=== PATIENT | female | born 1965 | race Caucasian/White ===

== ENCOUNTER 2018-11-20 06:40 | Day surgery (SDC) | payer BC ==
[~2018-11-20] VITALS: Ht 157.5 cm; Wt 54.8 kg
[2018-11-20 08:33] VITALS: Ht 157.5 cm; Wt 54.8 kg
[2018-11-20 08:49] VITALS: BP 119/62; PULSE 61; RESP 16
[2018-11-20] MEDS ORDERED: LACTATED RINGER'S 1,000 ML IV SCH (09:00)
[2018-11-20] MEDS ORDERED: LIDOCAINE 1%/EPI 30 ML INJ ONE (10:34)
[2018-11-20] MEDS ORDERED: EPHEDrine 25 MG/5 ML SYG ONE (10:46)
[2018-11-20] MEDS ORDERED: PROPOFOL 200 MG INJ ONE (10:46)
[2018-11-20] MEDS ORDERED: MIDAZOLAM 1 MG/ML 2 ML INJ ONE (10:46)
[2018-11-20] MEDS ORDERED: FENTAnyl 50 MCG/ML VIAL ONE (10:54)
[2018-11-20 11:08] VITALS: BP 91/56; PULSE 77; RESP 16
[2018-11-20 11:13] VITALS: BP 98/61; PULSE 76; RESP 11
[2018-11-20 11:18] VITALS: BP 101/63; PULSE 78; RESP 15
[2018-11-20 11:23] VITALS: BP 100/50; PULSE 76; RESP 15
[2018-11-20 11:28] VITALS: BP 97/54; PULSE 76; RESP 13
[2018-11-20] MEDS ORDERED: MEPERIDINE 25 MG INJ IV PRN (11:30)
[2018-11-20] MEDS ORDERED: PROCHLORPERAZINE 10 MG INJ IV PRN (11:30)
[2018-11-20] MEDS ORDERED: DIPHENHYDRAMINE 50 MG INJ IV PRN (11:30)
[2018-11-20] MEDS ORDERED: ONDANSETRON 4 MG INJ IV PRN (11:30)
[2018-11-20] MEDS ORDERED: HYDROmorphONE 1 MG/5 ML IV SYRINGE IV PRN ×3 (11:30)
[2018-11-20] MEDS ORDERED: FENTAnyl 50 MCG/ML VIAL IV PRN (11:30)
== END 2018-11-20 12:35 | disposition home or self-care (01) ==
LOC: SDS 06:40
PROVIDERS: ATTEND Otolaryngology
DX: K14.8 Other diseases of tongue (principal)
CPT/HCPCS: 41110; 88307; Z7512; Z7610; J2250; J3010